=== PATIENT | female | born 1955 | race Caucasian/White ===

== ENCOUNTER → 2016-06-13 | Outpatient (CLI) | payer OTHER ==
[~2016-06-13] MED LIST: ASPIRIN81 M1 PO; BLACK COHOSH; CIPRO PO; CIPRO250 MG PO; FLOMAX0.4 M1 PO; FLONASE 0.05% N16 G1; LEVAQUIN PO; LOPRESSOR PO; LORTAB 5/500 TA1 TA2 PO; NAPROSYN500 MG PO; NORCO 5/325 TAB1 TAB PO; PHENERGAN; PRAVACHOL; PYRIDIUM PO; TAB A VITE1 EACH; TOPROL XL; TYLOX 5-500 CA1 EACH PO
--- NOTE | ~2016-06-13 | MY11 ---
[facility] A Service of [facility] RADIOLOGY TEXT RESULTS PATIENT: MIKI PIERRE LOCATION: [facility] : 51 UNIT #: [id number] AGE: [address]: Oni Leong MD SEX: F ORDER DR: [id number] [facility] [address] [place], [place] [address] [id number] O MR#: [id number] Acc #: [id number] NAME: MIKI PIERRE : 1955 SEX: F STUDY DATE/TIME: 06/13/2016 10:35 UNIT: [facility] ROOM: STUDY DESCRIPTION: MY Mammogram Screening Dig Hoang Attending Physician: Oni Leong Jr., M.D. Ordering Physician: Oni Leong Jr., M.D. Primary Care Physician: Oni Leong Jr., M.D. MEDICAL IMAGING REPORT This report is preliminary unless electronic signature is present EXAM Digital screening mammogram, 06/13/2016. Psychiatric HISTORY 60-year-old woman positive family history, grandmother. Annual screening. COMPARISON STUDIES Mammograms date to 09/28/2005 with most recent 12/28/2014. FINDINGS Digital imaging of each breast was completed utilizing screening protocol. Review includes FDA-approved CAD device. Breast parenchyma is heterogeneously dense with a small nodular pattern again noted in each breast. Occasional benign calcification present. Mild subareolar duct prominence is present. There is no interval occurring mass. There are no suspicious microcalcifications and no architectural deformity. IMPRESSION Stable benign mammogram. Annual screening recommended. BIRADS II Patients over the age of 40 are entered into a reminder system with target due date for the next mammogram. A result letter will also be sent to the patient. BIRADS: 2 Benign Finding Dictated by... He Naqvi M.D. THIS IS AN ELECTRONICALLY VERIFIED REPORT He Naqvi M.D. at 06/13/2016 12:51 PM [facility] A Service of [facility] RADIOLOGY TEXT RESULTS PATIENT: MIKI PIERRE LOCATION: [facility] : 51 UNIT #: [id number] AGE: [address]: Oni Leong MD SEX: F ORDER DR: REY/jaycob TD: 06/13/2016 12:42 JOB #: [id number] MEDICAL IMAGING REPORT Page 1 of 1 COPY
== END | disposition home or self-care (01) ==
LOC: CWCC 10:11
DX: Z12.31 Encounter for screening mammogram for malignant neoplasm of breast (principal); Z80.3 Family history of malignant neoplasm of breast
CPT/HCPCS: G0202